=== PATIENT | female | born 1950 | race Caucasian/White ===

== ENCOUNTER 2019-11-14 12:09 | Day surgery (SDC) | payer MEDICARE ==
[~2019-11-14] VITALS: Ht 167.6 cm; Wt 75.8 kg
[~2019-11-14 12:09] MED LIST: CONEST.625 PO; HYDCHL25 PO; OMEP20ER PO
--- NOTE | 2019-11-14 15:42 | NUR ---
11/14/19 1542 Tiera Root PATIENT REFUSED MULTIPLE OFFERS OF PO FLUIDS
== END 2019-11-14 15:47 | disposition home or self-care (01) ==
LOC: ORSCSDS 12:09
PROVIDERS: Student in an Organized Health Care Education/Training Program
PROC: 0DB68ZX Excision of Stomach, Via Natural or Artificial Opening Endoscopic, Diagnostic (ICD-10-PCS; principal; 2019-11-14 13:45)
PROC: 0DB48ZX Excision of Esophagogastric Junction, Via Natural or Artificial Opening Endoscopic, Diagnostic (ICD-10-PCS; principal; 2019-11-14 13:45)
PROC: 0DB98ZX Excision of Duodenum, Via Natural or Artificial Opening Endoscopic, Diagnostic (ICD-10-PCS; principal; 2019-11-14 13:45)
PROC: 0DJD8ZZ Inspection of Lower Intestinal Tract, Via Natural or Artificial Opening Endoscopic (ICD-10-PCS; principal; 2019-11-14 13:45)
DX: R10.13 Epigastric pain (principal); K22.70 Barrett's esophagus without dysplasia; Z12.11 Encounter for screening for malignant neoplasm of colon; K56.699 Other intestinal obstruction unspecified as to partial versus complete obstruction; K31.7 Polyp of stomach and duodenum; K21.9 Gastro-esophageal reflux disease without esophagitis; K22.2 Esophageal obstruction; K44.9 Diaphragmatic hernia without obstruction or gangrene; K62.89 Other specified diseases of anus and rectum; I10 Essential (primary) hypertension; Z79.899 Other long term (current) drug therapy
CPT/HCPCS: 88305; 88342; J2704; J7120

== ENCOUNTER → 2021-09-11 | Outpatient (CLI) | payer OTHER | END | disposition home or self-care (01) | LOC: LAB 17:36 → LAB SHORT 17:36 | DX: N39.0 Urinary tract infection, site not specified (principal) | CPT/HCPCS: 87077; 87086; 87186 ==

== ENCOUNTER 2023-04-14 12:03 | Day surgery (SDC) | payer OTHER ==
[~2023-04-14] VITALS: Ht 167.6 cm; Wt 78.9 kg
[2023-04-14] MEDS ORDERED: LOSARTAN POTASS25 M2 PO (12:40)
[2023-04-14] MEDS ORDERED: METO100ER PO (12:40)
--- NOTE | 2023-04-14 13:25 | NUR ---
[facility]14/[address] [facility] [facility] INFORMED OF ELEVATED BLOOD PRESSURE IN PRE-OP AND THAT PATIENT IS UNABLE TO GET HER LOSARTAN FROM THE PHARMACY AND HAS NOT TAKEN METOPROLOL TODAY, SHE STATED SHE TOOK THE LAST METOPROLOL PILL SHE HAD YESTERDAY MORNING. PER DR LAI, REFER TO DR ZENG. PER DR ZENG, OK TO PROCEED.
--- NOTE | 2023-04-14 14:20 | NUR ---
04/14/23 1420 Ida Hall USED AT [facility] BY DR LAI.
--- NOTE | 2023-04-14 14:27 | NUR ---
04/14/23 1427 CARLOS ESPINOZA TRIAL OFF O2- 10L. O2 SAT STAYING UPPER 90'S
[2023-04-14 14:48] VITALS: BP 174/81
== END 2023-04-14 15:04 | disposition home or self-care (01) ==
LOC: ORSCSDS 12:03
DX: H61.23 Impacted cerumen, bilateral (principal); H72.01 Central perforation of tympanic membrane, right ear; H69.93 Unspecified Eustachian tube disorder, bilateral; K21.9 Gastro-esophageal reflux disease without esophagitis; I10 Essential (primary) hypertension; Z79.899 Other long term (current) drug therapy
CPT/HCPCS: A9270; J2250; J2704; J3010; J7120

== ENCOUNTER 2023-06-30 08:54 | Observation (INO) | payer OTHER ==
[~2023-06-30] VITALS: Ht 167.6 cm; Wt 79.2 kg
[~2023-06-30 08:54] MED LIST changes: +LOSARTAN POTASS25 M2 PO; +METO100ER PO
[2023-06-30 09:35] LABS: BASOPHILS ABSOLUTE AUTO 0.08 K/mm3 (0.00-0.23); BASOPHILS PERCENT AUTO 2 % (0-2); EOSINOPHILS PERCENT AUTO 2 % (0-6); Hemoglobin 14.2 g/dL (11.5-16.0); IMMATURE GRAN ABSOLUTE AUTO 0.01 K/mm3 (0.00-0.10); IMMATURE GRAN PERCENT AUTO 0 % (0-1); LYMPHOCYTES ABSOLUTE AUTO 1.82 K/mm3 (0.84-5.20); LYMPHOCYTES PERCENT AUTO 37 % (21-46); MONOCYTES ABSOLUTE AUTO 0.31 K/mm3 (0.16-1.47); MONOCYTES PERCENT AUTO 6 % (4-13); Mean Corpuscular HGB 30.9 pg (26.0-34.0); Mean Corpuscular HGB Conc 34.6 g/dL (31.5-36.5); Mean Corpuscular Volume 89 fL (80-100); Mean Platelet Volume 10.5 fL (9.1-12.4); NEUTROPHILS ABSOLUTE AUTO 2.66 K/mm3 (1.96-9.15); NEUTROPHILS PERCENT AUTO 54 % (41-73); Platelet Count 253 K/mm3 (150-400); RDW Coefficient Variation 11.9 % (11.7-14.2); RDW Standard Deviation 38.6 fL (35.1-46.3); White Blood Cell Count 4.98 K/mm3 (4.00-11.30)
[2023-06-30 09:47] LABS: Albumin, Blood 3.6 g/dL (3.4-5.0); Albumin/Globulin Ratio 1.1 (0.8-1.8); Bilirubin, Total 0.4 mg/dL (0.1-1.0); Bun/Creatinine Ratio 21.7 (12.0-20.0); Calcium, Blood 9.3 mg/dL (8.5-10.1); Creatinine, Blood 0.78 mg/dL (0.40-1.00); Globulin, Blood 3.4 g/dL (2.2-4.0); Potassium, Blood 3.7 mmol/L (3.5-5.5)
[2023-06-30] MEDS ORDERED: Losartan Potassium 50 MG Tab PO ONE (11:00)
[2023-06-30] MEDS ORDERED: Aspirin 81 MG Chew PO ONE (11:55)
[2023-06-30] MEDS ORDERED: Clopidogrel Bisulfate 75 MG Tab PO ONE (13:20)
[2023-06-30] MEDS ORDERED: FLU VACC QS2023-24(6MOS UP)/PF 60 MCG/0.5 ML SYRINGE IM PRN (13:35)
[2023-06-30 13:51] LABS: CHOL/HDL RATIO 5.5; Cholesterol 260 mg/dL (50-200); HDL Cholesterol 47 mg/dL (>39); LDL/HDL RATIO 3.9; Low Density Lipoprotein Chol 185 mg/dL (0-110); Triglycerides 140 mg/dL (30-160); Very Low Density Lipoprot Chol 28 mg/dL (6-32)
[2023-06-30] MEDS ORDERED: Atorvastatin 40 MG Tab PO SCH (14:00)
[2023-06-30 16:15] VITALS: BP 190/64
--- NOTE | 2023-06-30 18:25 | NUR ---
SHIFT SUMMARY 1611 RECEIVED PT TO RM 304 [employer]IA [employer], FROM ER. PT ABLE TO TX SELF TO BED. ADMITTED FOR ACUTE CVA WITH R SIDE WEAKNESS; MOSTLY RESOLVED BY TIME OF ADMISSION. PT REPORTS SOME RESIDUAL R HAND WEAKNESS. UP WITH SBA FOR SAFETY. PT UP TO BTHRM NEEDED. ABLE TO EAT AND DRINK SAFELY. DR MATHEW NOTIFIED FOR DIET ORDERS. PT ALSO REQUESTING TO BE DNR STATUS. PT TO BRING IN HOME POLST IN AM. PT REQUESTING PRILOSEC; DR MATHEW NOTIFIED AND TO PUT IN ORDERS. NO C/O PAIN. VERY PLEASANT AND CO-OP. ABLE TO MAKE NEEDS KNOWN.
[2023-06-30 19:47] VITALS: BP 149/57
[2023-06-30] MEDS ORDERED: Melatonin 5 MG Tablet PO PRN (22:05)
[2023-07-01 03:49] VITALS: BP 144/78
--- NOTE | 2023-07-01 05:07 | NUR ---
SHIFT SUMMARY ADMITTED FOR CVA. DNR CODE. SYMPTOMS RESOLVING, RUE WEAKNESS REMAINS. PT/OT/ST ORDERED. CARDIAC DIET. ON RA. STANDBY ASSIST W/BRP. PLAN IS FOR MRI, ECHO, PERMISSIVE HTN, STATIN/PLAVIX RX. MELATONIN GIVEN FOR INSOMNIA. ON LOVENOX. TELEMETRY: NSR @ 61 BPM.
[2023-07-01] MEDS ORDERED: Omeprazole 20 MG CapCR PO SCH (06:00)
[2023-07-01 07:25] VITALS: BP 169/93
[2023-07-01] MEDS ORDERED: Aspirin 81 MG Chew PO SCH (09:00)
[2023-07-01] MEDS ORDERED: Clopidogrel Bisulfate 75 MG Tab PO SCH (09:00)
[2023-07-01] MEDS ORDERED: Enoxaparin 40 MG/0.4 ML SYR SC SCH (09:00)
[2023-07-01 16:23] VITALS: BP 170/80
[2023-07-01] MEDS ORDERED: ATOR80 PO (17:16)
[2023-07-01] MEDS ORDERED: CLOP75 PO (17:16)
[2023-07-01] MEDS ORDERED: PANT40 PO (17:16)
[2023-07-01] MEDS ORDERED: ASPI81CH PO (17:16)
--- NOTE | 2023-07-01 18:22 | NUR ---
SHIFT SUMMARY PT AWAKE DURING SHIFT REPORT, UP TO BTHRM INDEPENDENTLY. PT REQUESTING TO TAKE A SHOWER AFTER BREAKFAST. PT UP TO EOB FOR MEALS. ABLE TO WORK WITH THERAPY AND AMBULATE IN HALLS. PT STILL HAVING SOME R HAND AND R LEG RESIDULE WEAKNESS, BUT ABLE TO USE EXTREMITIES. VISITORS TO THRU OUT THE DAY, HOPING PT TO BE D/C'D. PT WAITED FOR ECHO TO BE DONE AND THEN ABLE TO TAKE A SHOWER. WHEN ECHO RESULTS IN, DR MATHEW PLACED D/C TO HOME ORDERS. MEDS FAXED PER PT REQUEST. DAUGHTER HERE TO TAKE PT HOME. IV AND TELE MX D/C'D. D/C INSTRUCTIONS REVIEWED WITH PT; VERBALIZED UNDERSTANDING. PHARMACY REVIEWED NEW MEDICATIONS WITH PT. ALL BELONGINGS TOGETHER WITH PT BEING ASSISTED BY FAMILY.
[2023-07-02] MEDS ORDERED: Pantoprazole Sodium 40 MG Tab PO SCH (06:00)
== END 2023-07-01 18:37 | disposition home health service (06) ==
LOC: ER 08:54 → MEDS 08:55
PROVIDERS: Emergency Medicine; ADMIT Internal Medicine
DX: I63.9 Cerebral infarction, unspecified (principal); E78.00 Pure hypercholesterolemia, unspecified; K21.9 Gastro-esophageal reflux disease without esophagitis; I10 Essential (primary) hypertension; I25.10 Atherosclerotic heart disease of native coronary artery without angina pectoris; E78.5 Hyperlipidemia, unspecified; I73.9 Peripheral vascular disease, unspecified; Z79.899 Other long term (current) drug therapy; Z88.8 Allergy status to other drugs, medicaments and biological substances
CPT/HCPCS: 70450; 70496; 70498; 70551; 71045; 80053; 80061; 82947; 83036; 85025; 92610; 93005; 93010; 93306; 96372; 97116; 97162; 97165; 97530; 97535; 99285-25; A9270; G0378; J1650; Q9967

== ENCOUNTER 2023-07-05 09:58 | Inpatient (IN) | payer OTHER, MEDICAID ==
[~2023-07-05] VITALS: Ht 167.6 cm; Wt 77.2 kg
[~2023-07-05 09:58] MED LIST changes: +ASPI81CH PO; +ATOR80 PO; +CLOP75 PO; +PANT40 PO
[2023-07-05 10:12] LABS: BASOPHILS ABSOLUTE AUTO 0.07 K/mm3 (0.00-0.23); BASOPHILS PERCENT AUTO 1 % (0-2); EOSINOPHILS ABSOLUTE AUTO 0.04 K/mm3 (0.00-0.68); EOSINOPHILS PERCENT AUTO 1 % (0-6); Hematocrit 40.6 % (33.0-51.0); Hemoglobin 13.8 g/dL (11.5-16.0); IMMATURE GRAN ABSOLUTE AUTO 0.01 K/mm3 (0.00-0.10); IMMATURE GRAN PERCENT AUTO 0 % (0-1); LYMPHOCYTES ABSOLUTE AUTO 1.36 K/mm3 (0.84-5.20); LYMPHOCYTES PERCENT AUTO 23 % (21-46); MONOCYTES PERCENT AUTO 7 % (4-13); Mean Corpuscular HGB 30.4 pg (26.0-34.0); Mean Corpuscular Volume 89 fL (80-100); Mean Platelet Volume 10.1 fL (9.1-12.4); NEUTROPHILS ABSOLUTE AUTO 3.95 K/mm3 (1.96-9.15); NEUTROPHILS PERCENT AUTO 68 % (41-73); Platelet Count 253 K/mm3 (150-400); RDW Coefficient Variation 11.9 % (11.7-14.2); RDW Standard Deviation 38.7 fL (35.1-46.3); Red Blood Cell Count 4.54 M/mm3 (3.80-5.20); White Blood Cell Count 5.83 K/mm3 (4.00-11.30)
[2023-07-05 10:30] LABS: Albumin, Blood 3.7 g/dL (3.4-5.0); Albumin/Globulin Ratio 1.1 (0.8-1.8); Bilirubin, Total 0.7 mg/dL (0.1-1.0); Bun/Creatinine Ratio 37.1 (12.0-20.0); Calcium, Blood 9.5 mg/dL (8.5-10.1); Creatinine, Blood 0.73 mg/dL (0.40-1.00); Globulin, Blood 3.3 g/dL (2.2-4.0); Potassium, Blood 3.8 mmol/L (3.5-5.5)
[2023-07-05] MEDS ORDERED: FLU VACC QS2023-24(6MOS UP)/PF 60 MCG/0.5 ML SYRINGE IM PRN (13:50)
[2023-07-05 15:25] VITALS: BP 188/67
[2023-07-05 17:05] VITALS: BP 174/66
[2023-07-05] MEDS ORDERED: HydrALAZINE HCl 20 MG / ML 1ML Vial IV PRN (17:05)
[2023-07-05 17:49] VITALS: BP 167/76
[2023-07-05] MEDS ORDERED: Labetalol HCL 5 MG/ML 4ML Injection (Single Dose) IV ONE (18:10)
[2023-07-05] MEDS ORDERED: Cyclobenzaprine HCl 10 MG Tab PO PRN (18:15)
[2023-07-05] MEDS ORDERED: Losartan Potassium 25 MG Tab PO ONE (19:00)
[2023-07-05 19:04] LABS: Magnesium, Blood 2.1 mg/dL (1.6-2.4); Phosphorus, Blood 2.9 mg/dL (2.5-4.9)
--- NOTE | 2023-07-05 20:03 | NUR ---
PATIENT ARRIVED TO UNIT AT 1515, BLOOD PRESSURE ELAVATED, RECHECK STILL ABOVE 170S, DR MATHEW NOTIFIED AND HYDRALAZINE ORDERED. BP STILL ABOVE 160 AN HOUR LATER AND LABETELOL 5MG ORDERED AND GIVENG. PATIENT ALSOW WITH SPASMS OF RIGHT LEG, FLEXERIL ORDERED AND MAGNESIUM AND PHOSPHORUS LEVEL ORDERED. PATIENT REPORTS NO RELEIF WITH FLEXERIL UPON RN TO RN BEDSIDE REPORT. RN KONSTANTIN NOTIFIED DR MATHEW WANTS TO BE MADE AWARE OF NO RELIEF OF SPASMS. BED IN LOW POSITION, CALL LIGHT IN REACH. BED ALARM ON FOR NOW FOR SAFETY.
[2023-07-05 20:18] VITALS: BP 161/72
[2023-07-06 03:00] VITALS: BP 161/84
[2023-07-06 05:43] LABS: BASOPHILS ABSOLUTE AUTO 0.06 K/mm3 (0.00-0.23); BASOPHILS PERCENT AUTO 1 % (0-2); EOSINOPHILS ABSOLUTE AUTO 0.07 K/mm3 (0.00-0.68); EOSINOPHILS PERCENT AUTO 1 % (0-6); Hemoglobin 13.6 g/dL (11.5-16.0); IMMATURE GRAN ABSOLUTE AUTO 0.02 K/mm3 (0.00-0.10); IMMATURE GRAN PERCENT AUTO 0 % (0-1); LYMPHOCYTES ABSOLUTE AUTO 1.88 K/mm3 (0.84-5.20); LYMPHOCYTES PERCENT AUTO 29 % (21-46); MONOCYTES ABSOLUTE AUTO 0.46 K/mm3 (0.16-1.47); MONOCYTES PERCENT AUTO 7 % (4-13); Mean Corpuscular HGB 30.3 pg (26.0-34.0); Mean Corpuscular Volume 89 fL (80-100); Mean Platelet Volume 10.4 fL (9.1-12.4); NEUTROPHILS ABSOLUTE AUTO 4.08 K/mm3 (1.96-9.15); NEUTROPHILS PERCENT AUTO 62 % (41-73); Platelet Count 268 K/mm3 (150-400); Red Blood Cell Count 4.49 M/mm3 (3.80-5.20); White Blood Cell Count 6.57 K/mm3 (4.00-11.30)
[2023-07-06] MEDS ORDERED: Pantoprazole Sodium 40 MG Tab PO SCH (06:00)
[2023-07-06 06:04] LABS: Bun/Creatinine Ratio 32.6 (12.0-20.0); Calcium, Blood 9.3 mg/dL (8.5-10.1); Creatinine, Blood 0.67 mg/dL (0.40-1.00); Potassium, Blood 3.4 mmol/L (3.5-5.5)
--- NOTE | 2023-07-06 07:52 | NUR ---
ELECTRICAL LOGGER SUMMARY BP ELEVATED, OTHERWISE VSS. RIGHT SIDE WEAKNESS FROM RECENT CVA. DAUGHTER AT BEDSIDE FOR SUPPORT. PT SONIAAL SCHEDULED FOR THIS AM. INCONT A FEW TIMES, REPOSITIONED AND CLEANED UP. MED TELE SR IN THE 60'S. OCCASIONAL RIGHT LEG SPASMS, MEDS EFFECTIVE. OTHERWISE, HAS BEEN RESTING QUIETLY WITH FEW INTERRUPTIONS. CALL LIGHT IN REACH - ABLE TO USE IT WELL. RAILS UP X 2 FOR SAFETY. SMILING AT SHIFT CHANGE.
[2023-07-06 08:18] VITALS: BP 150/83
[2023-07-06] MEDS ORDERED: Aspirin 81 MG Chew PO SCH (09:00)
[2023-07-06] MEDS ORDERED: Losartan Potassium 25 MG Tab PO SCH (09:00)
[2023-07-06] MEDS ORDERED: AmLODIPine Besylate 5 MG Tab PO SCH (09:00)
[2023-07-06] MEDS ORDERED: Atorvastatin 40 MG Tab PO SCH (09:00)
[2023-07-06] MEDS ORDERED: Clopidogrel Bisulfate 75 MG Tab PO SCH (09:00)
[2023-07-06] MEDS ORDERED: Metoprolol Succinate 50 MG TABCR PO SCH (09:00)
[2023-07-06] MEDS ORDERED: Enoxaparin 40 MG/0.4 ML SYR SC SCH (09:00)
[2023-07-06] MEDS ORDERED: Losartan Potassium 50 MG Tab PO SCH (09:00)
[2023-07-06 16:19] VITALS: BP 139/65
--- NOTE | 2023-07-06 17:11 | NUR ---
Met with pt's daughter Mojgan for therapeutic visit. She describes her mom, the patient as a "go-getter". 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 Daughter lives in [place], and is here to provide emotional support. She is concerned about how well the patient's recovery will go, and if she will be able to return to independence. The patient is alert and oriented. She reports feeling exhausted, states she isn't getting any sleep at night between insomnia, muscles spasms, and what she calls "weird nerve pain on my R side". The patient does have a muscle relaxer prescribed TID prn, and after discussion with Dr. Mcgarry, the patient will try gabapentin at bedtime for pain and sleep. The patient is preparing to go to SNF when approved, and daughter Mojgan verbalized appreciation toward Palliative Care being available as a "sounding board", and "an empathetic ear during a stressful time". Palliative care will remain involved, plan to assist pt and daughter with filling out a POLST tomorrow, as she doesn't currently have one.
--- NOTE | 2023-07-06 18:50 | NUR ---
1850- TELEPHONE VERBAL FROM SILVIA GONZALEZ FOR TOMAZEPAM 15MG AT BEDTIME NIGHTLY.
--- NOTE | 2023-07-06 20:08 | NUR ---
SUMMARY- AAOX4. X1 MIN ASSIST TO BSC/CHAIR WITH GAIT BELT. NO ISSUES WITH EATING TODAY. R SIDED WEAKNESS NOTED.
[2023-07-06 20:11] VITALS: BP 176/85
[2023-07-06] MEDS ORDERED: Temazepam 15 MG Cap PO SCH (21:00)
[2023-07-06] MEDS ORDERED: Methocarbamol 500 MG Tab PO PRN (21:40)
[2023-07-06] MEDS ORDERED: Gabapentin 300 MG Cap PO SCH (22:00)
[2023-07-06] MEDS ORDERED: Losartan Potassium 50 MG Tab PO ONE (22:00)
[2023-07-07 02:47] VITALS: BP 146/71
[2023-07-07 04:54] LABS: BASOPHILS ABSOLUTE AUTO 0.08 K/mm3 (0.00-0.23); BASOPHILS PERCENT AUTO 1 % (0-2); EOSINOPHILS PERCENT AUTO 2 % (0-6); Hematocrit 40.2 % (33.0-51.0); Hemoglobin 13.5 g/dL (11.5-16.0); IMMATURE GRAN ABSOLUTE AUTO 0.01 K/mm3 (0.00-0.10); IMMATURE GRAN PERCENT AUTO 0 % (0-1); LYMPHOCYTES ABSOLUTE AUTO 1.94 K/mm3 (0.84-5.20); LYMPHOCYTES PERCENT AUTO 30 % (21-46); MONOCYTES ABSOLUTE AUTO 0.52 K/mm3 (0.16-1.47); MONOCYTES PERCENT AUTO 8 % (4-13); Mean Corpuscular HGB 30.1 pg (26.0-34.0); Mean Corpuscular HGB Conc 33.6 g/dL (31.5-36.5); Mean Corpuscular Volume 90 fL (80-100); Mean Platelet Volume 10.4 fL (9.1-12.4); NEUTROPHILS ABSOLUTE AUTO 3.85 K/mm3 (1.96-9.15); NEUTROPHILS PERCENT AUTO 59 % (41-73); Platelet Count 279 K/mm3 (150-400); RDW Coefficient Variation 12.1 % (11.7-14.2); RDW Standard Deviation 39.8 fL (35.1-46.3); Red Blood Cell Count 4.48 M/mm3 (3.80-5.20)
[2023-07-07 05:24] LABS: Bun/Creatinine Ratio 45.6 (12.0-20.0); Calcium, Blood 9.3 mg/dL (8.5-10.1); Creatinine, Blood 0.7 mg/dL (0.40-1.00); Potassium, Blood 3.5 mmol/L (3.5-5.5)
[2023-07-07 07:18] VITALS: BP 150/78
[2023-07-07] MEDS ORDERED: Losartan Potassium 50 MG Tab PO SCH (09:00)
[2023-07-07] MEDS ORDERED: Carvedilol 6.25 MG Tab PO SCH ×2 (09:00→17:00)
[2023-07-07 15:14] VITALS: BP 146/72
[2023-07-07 19:57] VITALS: BP 157/84
--- NOTE | 2023-07-07 20:18 | NUR ---
SUMMARY- NO ACUTE EVENTS THIS SHIFT. NO CHANGES WITH PT. AAOX4. MIN ASSIST TO BSC.
[2023-07-08 02:31] VITALS: BP 134/77
--- NOTE | 2023-07-08 05:09 | NUR ---
SHIFT SUMMARY 73 YR F ADMITTED ON 07-06-23. DNR. NO ACUTE CHANGES THIS SHIFT. PT HAS SLEPT FOR MOST OF THIS SHIFT. RIGHT ARM IS FLACCID AND IS PROPPED ON A PILLOW. PUREWIK IS IN PLACE AND WORKING WELL. PLAN IS FOR [facility] AND CURRENTLY AWAITING AUTHORIZATION. PT IS VERY PLEASANT AND COOPERATIVE WITH CARE.
[2023-07-08 07:30] LABS: BASOPHILS ABSOLUTE AUTO 0.07 K/mm3 (0.00-0.23); BASOPHILS PERCENT AUTO 1 % (0-2); EOSINOPHILS ABSOLUTE AUTO 0.12 K/mm3 (0.00-0.68); EOSINOPHILS PERCENT AUTO 2 % (0-6); Hematocrit 40.1 % (33.0-51.0); Hemoglobin 13.7 g/dL (11.5-16.0); IMMATURE GRAN PERCENT AUTO 0 % (0-1); LYMPHOCYTES ABSOLUTE AUTO 1.52 K/mm3 (0.84-5.20); LYMPHOCYTES PERCENT AUTO 28 % (21-46); MONOCYTES ABSOLUTE AUTO 0.38 K/mm3 (0.16-1.47); MONOCYTES PERCENT AUTO 7 % (4-13); Mean Corpuscular HGB 30.2 pg (26.0-34.0); Mean Corpuscular HGB Conc 34.2 g/dL (31.5-36.5); Mean Corpuscular Volume 89 fL (80-100); Mean Platelet Volume 10.1 fL (9.1-12.4); NEUTROPHILS ABSOLUTE AUTO 3.35 K/mm3 (1.96-9.15); NEUTROPHILS PERCENT AUTO 62 % (41-73); Platelet Count 260 K/mm3 (150-400); RDW Coefficient Variation 11.9 % (11.7-14.2); RDW Standard Deviation 38.5 fL (35.1-46.3); Red Blood Cell Count 4.53 M/mm3 (3.80-5.20); White Blood Cell Count 5.44 K/mm3 (4.00-11.30)
[2023-07-08 07:50] LABS: Bun/Creatinine Ratio 58.2 (12.0-20.0); Calcium, Blood 9.3 mg/dL (8.5-10.1); Creatinine, Blood 0.6 mg/dL (0.40-1.00); Potassium, Blood 3.5 mmol/L (3.5-5.5)
[2023-07-08 07:54] VITALS: BP 154/67
[2023-07-08 13:05] VITALS: BP 118/73
--- NOTE | 2023-07-08 13:25 | NUR ---
"Spiritual Care | Code Blue Response Pt. is being treated by the Code team. Pts. daughter Mojgan and a friend of the Pt. are in the Med. floor esparza waiting area. Gave crisis support to the family by providing emotional and logistic support. Daughter and friend display evidence of being comforted. Escorted the daughter and friend into Pts. room when the nursing staff deemed it safe to do so. Introduced myself to Pt. Will remain available to Pt. and daughter."
[2023-07-08 13:27] LABS: BASOPHILS ABSOLUTE AUTO 0.11 K/mm3 (0.00-0.23); BASOPHILS PERCENT AUTO 1 % (0-2); EOSINOPHILS ABSOLUTE AUTO 0.12 K/mm3 (0.00-0.68); EOSINOPHILS PERCENT AUTO 1 % (0-6); Hematocrit 43.6 % (33.0-51.0); Hemoglobin 14.8 g/dL (11.5-16.0); IMMATURE GRAN ABSOLUTE AUTO 0.02 K/mm3 (0.00-0.10); IMMATURE GRAN PERCENT AUTO 0 % (0-1); LYMPHOCYTES ABSOLUTE AUTO 1.59 K/mm3 (0.84-5.20); LYMPHOCYTES PERCENT AUTO 17 % (21-46); MONOCYTES ABSOLUTE AUTO 0.45 K/mm3 (0.16-1.47); MONOCYTES PERCENT AUTO 5 % (4-13); Mean Corpuscular HGB 30.2 pg (26.0-34.0); Mean Corpuscular HGB Conc 33.9 g/dL (31.5-36.5); Mean Corpuscular Volume 89 fL (80-100); Mean Platelet Volume 10.2 fL (9.1-12.4); NEUTROPHILS ABSOLUTE AUTO 6.83 K/mm3 (1.96-9.15); NEUTROPHILS PERCENT AUTO 75 % (41-73); Platelet Count 343 K/mm3 (150-400); RDW Standard Deviation 39.1 fL (35.1-46.3); White Blood Cell Count 9.12 K/mm3 (4.00-11.30)
[2023-07-08 13:54] LABS: Base Excess Venous -1.9 mmol/L; PCO2 Venous 38.5 mmHg (38-42); pH Blood Venous 7.39 (7.34-7.37)
[2023-07-08 14:06] LABS: Albumin, Blood 3.7 g/dL (3.4-5.0); Bilirubin, Total 0.8 mg/dL (0.1-1.0); Bun/Creatinine Ratio 48.1 (12.0-20.0); Creatinine, Blood 0.83 mg/dL (0.40-1.00); Globulin, Blood 3.8 g/dL (2.2-4.0); Potassium, Blood 4.1 mmol/L (3.5-5.5); Total Protein, Blood 7.5 g/dL (6.4-8.2)
--- NOTE | 2023-07-08 14:22 | NUR ---
Telephone report from SHERI Peck. Pt to be coming to PCU 11 shortly.
[2023-07-08 14:40] VITALS: BP 137/78
--- NOTE | 2023-07-08 14:51 | NUR ---
1430 PT ARRIVED TO PCU 11. She is alert, speech is slurred, but she is oriented and appropriate in conversation. Her daughter Mojgan is at the bedside. Pt has right sided facial droop and right side is flaccid, both upper and lower extremity. She is having spontaneous right arm flexion with yawning.
--- NOTE | 2023-07-08 16:33 | NUR ---
EEG IN PROGRESS.
--- NOTE | 2023-07-08 16:34 | NUR ---
Max assist with gait belt to stand and pivot from the chair to the bedside commode to void. Quite a challenge with all of the EEG leads in place. She moves with difficulty, right side deficit.
[2023-07-08] MEDS ORDERED: Carvedilol 6.25 MG Tab PO SCH (17:00)
[2023-07-08] MEDS ORDERED: Carvedilol 25 MG Tab PO SCH (17:00)
--- NOTE | 2023-07-08 17:12 | NUR ---
1300 PT WAS SITTING IN THE CHAIR AFTER IMCU NURSE ASSISTED HER FROM BSC TO CHAIR, PT'S FAMILY CALLED OUT INTO [place], "WE NEED HELP IN HERE!!!" UPON ARRIVAL TO THE ROOM, PT WAS HUNCHED OVER IN HER CHAIR, LEANING TO THE RIGHT, HEAD DOWN, CYANOTIC, SHALLOW SLOW RESP. 2 RN BLANKET LIFT BACK TO THE BED, PT FLAT ON BACK, ASSESSED PULSE TO FIND THREADY BUT PALP, TURBINE ASSEMBLER CALLED RATE 66, HAD GONE LOW 30'S RECENTLY. CALLED CODE 1301,DR LISA COLE RESPONDED ALONG WITH CODE TEAM. HE DID CALL DR MATHEW AFTER THE INCIDENT AND ALERTED HIM TO PT'S CONDITION. RT TO AID IN AIRWAY, STARTED ON OXYGEN NC, PT WAS NOT RESPONSIVE AT FIRST, BUT WITHIN 2 MINUTES WAS COMING TO AND ABLE TO ANSWER QUESTIONS AND BREATH SUFFICIENTLY. PT DID NOT REMEBER THAT ANYTHING HAPPENED, STATES SHE BARELY REMEMBERWS MAYBE GETTING A LITTLE DIZZY BEFORE EPISODE OCCURED. BP OBTAINED 1305, 118/73, MAP 85, RATE SR 66. PT WAS BACK TO BASELINE NEUROO BY 1305. IMCU NURSE AND SHERI ELLIS LOKI PT OVER NEXT HOUR, CONT PULSE OX AND CONT OBS. PT IS FOUND TO BE COMING IN/OUT OF FOCUS. DRIFTS INTO A LETHARGIC STATE, SLOWS BREATHING AND SATS DROPPED INTO 70'S, COMES TO WITH NOXIOUS STIM. CALLED DR MATHEW ALERTING HIM THAT PT CONT TO HAVE CONCERNING NEURO EPISODES. ORDER FOR PCU TX, ORDER FOR MRI AND EEG. CALLED THELMA PELLETIER AND GAVE REPORT 1415. TX TO PCU 11 AT 1430
[2023-07-08 17:35] VITALS: BP 144/77
[2023-07-08 23:05] VITALS: BP 116/59
[2023-07-09] VITALS (7 sets, daily range): BP systolic 89–143; BP diastolic 47–91
[2023-07-09 04:19] LABS: BASOPHILS ABSOLUTE AUTO 0.07 K/mm3 (0.00-0.23); BASOPHILS PERCENT AUTO 1 % (0-2); EOSINOPHILS ABSOLUTE AUTO 0.09 K/mm3 (0.00-0.68); EOSINOPHILS PERCENT AUTO 1 % (0-6); Hematocrit 38.2 % (33.0-51.0); Hemoglobin 13.1 g/dL (11.5-16.0); IMMATURE GRAN ABSOLUTE AUTO 0.03 K/mm3 (0.00-0.10); IMMATURE GRAN PERCENT AUTO 1 % (0-1); LYMPHOCYTES ABSOLUTE AUTO 1.78 K/mm3 (0.84-5.20); LYMPHOCYTES PERCENT AUTO 27 % (21-46); MONOCYTES PERCENT AUTO 8 % (4-13); Mean Corpuscular HGB 30.8 pg (26.0-34.0); Mean Corpuscular HGB Conc 34.3 g/dL (31.5-36.5); Mean Corpuscular Volume 90 fL (80-100); Mean Platelet Volume 10.5 fL (9.1-12.4); NEUTROPHILS ABSOLUTE AUTO 4.02 K/mm3 (1.96-9.15); NEUTROPHILS PERCENT AUTO 62 % (41-73); Platelet Count 272 K/mm3 (150-400); RDW Coefficient Variation 12.1 % (11.7-14.2); RDW Standard Deviation 39.1 fL (35.1-46.3); Red Blood Cell Count 4.26 M/mm3 (3.80-5.20); White Blood Cell Count 6.49 K/mm3 (4.00-11.30)
[2023-07-09 04:46] LABS: Bun/Creatinine Ratio 53.4 (12.0-20.0); Calcium, Blood 9.3 mg/dL (8.5-10.1); Creatinine, Blood 0.73 mg/dL (0.40-1.00); Potassium, Blood 3.7 mmol/L (3.5-5.5)
--- NOTE | 2023-07-09 05:57 | NUR ---
SHIFT SUMMARY PT IS ALERT AND ORIENTED X 4, COOPERATIVE WITH CARE AND ABLE TO MAKE NEEDS KNOWN. DROOPING R SIDE OF FACE, R ARM FLACCID, R LEG DEFICIT BUT IS STILL ABLE TO MOVE AND LIFT R LEG SLIGHTLY. PT HAS SENSATION TO ALL EXTREMITIES. PT ON RA AND MAINTAINING O2 SATURATION ABOVE 92%, SHE HAS DENIED SOB ALL SHIFT. HR 60'S, LAST BP OF 122/70, PT HAS DENIED CHEST PAIN/PRESSURE ALL SHIFT. RR 12 AND ABOVE ALL NIGHT, UNLABORED BREATHING WHILE SLEEPING WITH SYMMETRICAL RISE AND FALL OF CHEST. PT HAS OCCASIONAL SPASMS OF R LEG WHERE IT LIFTS UP AND GOES BACK DOWN, PT SAID IT GETS WORSE AT NIGHT. AT BEGINNING OF SHIFT PT'S DAUGHTER SAID THAT BENDING THAT LEG HELPED TO MINIMIZE THE SPASMS. THIS RN ELEVATED PT'S LEG TO WHERE IT WAS BENT AT THE KNEE WITH PILLOWS, AROUND 0530 PT SAID THAT HAVING PILLOWS UNDER HER LEG HELPED HER SLEEP BETTER, USUALLY SHE IS KEPT AWAKE BY THE LEG SPASMS. PT SLEPT THE MAJORITY OF THE SHIFT. Q 2 TURNS PERFORMED THIS SHIFT. PT HAS PUREWICK IN PLACE DRAINING SMALL AMOUNTS OF YELLOW URINE. OUTPUT WAS MINIMAL THIS SHIFT, SEE I'S AND O'S, BLADDER SCAN PERFORMED, SEE CHART. NO BOWEL MOVEMENT THIS SHIFT. PT CURRENTLY RESTING IN BED WITH CALL LIGHT WITHIN REACH.
[2023-07-09] MEDS ORDERED: levETIRAcetam 750 MG in NS 100 ML IV SCH (10:16)
--- NOTE | 2023-07-09 12:27 | NUR ---
[employer] / UPDATE UPON CARE ASSUMPTION PT A&O X4 W/ SLURRED SPEECH. PT W/ NOTED R FACIAL DROOP, R ARM FLACCID & R LEG MINIMALLY ABLE TO BE LIFTED UP OFF BED BY PT. PT VSS. MONITOR SHOWING SR, HR 70s. SPO2 > 92% ON RA. PT RESPIRATIONS NOTED TO BE IRREGULAR W/ EPISODES OF APNEA. OT WORKING W/ PT THIS AM W/ PT ABLE TO STAND & WEAKLY PIVOT FROM BED TO CHAIR W/ 1 PERSON MAX ASSIST. PT SITTING UP IN CHAIR W/ THERAPIST FOR SOME TIME WHEN REPORT OF PT SUDDENLY SLUMPING OVER & NOT RESPONDING. [employer] CALLED. FINAL INSPECTION SUPERVISOR TO FIRST W/ REPORT OF PT NOT BREATHING. MONITOR SHOWING HR 60s, THEN DECREASE TO 40s. PULSE PALPABLE. PT JOHN IN COLOR & NOT RESPONDING. PT LIFTED FROM CHAIR TO BED BY BLANKET & MULTIPLE STAFF MEMBERS. DR MATHEW & DR COLE TO . EKG DONE. PT THEN WAKING WITHIN 1-2 MINUTES. DISCUSSING EEG RESULTS & ORDERED IV KEPPRA, SEE ORDER. PHARMACIST PROMPTLY TO PT RM W/ IV KEPPRA & INITIATED INFUSION PER ORDERS. PT SPEECH MORE SLURRED UPON WAKING W/ SPEECH SLIGHTLY IMPROVING OVER TIME. ST TO , REPORTS WILL REATTEMPT TO SEE PT AT LATER TIME WHEN PT MORE ALERT. PT W/ INCREASED EPISODES OF NOT BREATHING FOR 10-15 SECONDS AT A TIME. MD MATHEW NOTIFIED W/ ORDER FOR CONTINUOUS O2 MONITORING & ETCO2 MONITORING WELL BIPAP/CPAP PROTOCOL. RT NOTIFIED OF NEW ORDERS. ETCO2 RANGING FROM 13-24.
[2023-07-09] MEDS ORDERED: Zolpidem Tartrate 5 MG Tab PO PRN (17:10)
[2023-07-09] MEDS ORDERED: Baclofen 10 MG Tab PO SCH (18:00)
--- NOTE | 2023-07-09 18:50 | NUR ---
Spiritual Care Visit. Pt. is in bed and welcomes my visit. Daughter and PCU nurse are at bedside. Facilitate a short life review and ask leading questions regarding how she is handling her hospitalization. Pt. displayed evidence of courage and clarity. Prayed with the Pt. and those in the room. Pt. 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
--- NOTE | 2023-07-09 18:56 | NUR ---
END OF SHIFT PT CONTINUES TO BE A&O X4 . ORIGINALLY SLURRED SPEECH IS NOW MORE CLEAR THIS EVENING. CONTINUED R-SIDED DEFICIT. VSS. MONITOR SHOWING SB-SR, HR 40s-70s. SPO2 > 92% ON RA W/ ETCO2 MONITOR IN PLACE. RR IRREGULAR W/ 10-15 SECONDS OF NO BREATHING BUT SPO2 REMAINING > 92%. NO FURTHER EVENTS THIS SHIFT.
[2023-07-10 00:14] VITALS: BP 103/50
[2023-07-10 03:30] VITALS: BP 158/77
[2023-07-10 04:12] LABS: BASOPHILS ABSOLUTE AUTO 0.07 K/mm3 (0.00-0.23); BASOPHILS PERCENT AUTO 1 % (0-2); EOSINOPHILS ABSOLUTE AUTO 0.13 K/mm3 (0.00-0.68); EOSINOPHILS PERCENT AUTO 2 % (0-6); Hematocrit 36.4 % (33.0-51.0); Hemoglobin 12.4 g/dL (11.5-16.0); IMMATURE GRAN ABSOLUTE AUTO 0.01 K/mm3 (0.00-0.10); IMMATURE GRAN PERCENT AUTO 0 % (0-1); LYMPHOCYTES PERCENT AUTO 30 % (21-46); MONOCYTES ABSOLUTE AUTO 0.51 K/mm3 (0.16-1.47); MONOCYTES PERCENT AUTO 8 % (4-13); Mean Corpuscular HGB 30.4 pg (26.0-34.0); Mean Corpuscular HGB Conc 34.1 g/dL (31.5-36.5); Mean Corpuscular Volume 89 fL (80-100); Mean Platelet Volume 10.5 fL (9.1-12.4); NEUTROPHILS ABSOLUTE AUTO 3.52 K/mm3 (1.96-9.15); NEUTROPHILS PERCENT AUTO 58 % (41-73); Platelet Count 272 K/mm3 (150-400); RDW Coefficient Variation 11.9 % (11.7-14.2); RDW Standard Deviation 38.9 fL (35.1-46.3); Red Blood Cell Count 4.08 M/mm3 (3.80-5.20); White Blood Cell Count 6.04 K/mm3 (4.00-11.30)
[2023-07-10 04:33] LABS: Bun/Creatinine Ratio 60.3 (12.0-20.0); Calcium, Blood 9.3 mg/dL (8.5-10.1); Creatinine, Blood 0.7 mg/dL (0.40-1.00); Potassium, Blood 3.5 mmol/L (3.5-5.5)
--- NOTE | 2023-07-10 04:40 | NUR ---
SHIFT SUMMARY THIS RN ASSUMED CARE OF PATIENT AT 1900. PT A&O X4. SLURRED SPEECH NOTED; WHICH DAUGHTER STATES IS HER NORMAL. NO CHANGES TO NEURO NOTED T/O THIS SHIFT FROM PREVIOUS ASSESSMENTS. PT NOTED TO HAVE EPISODES OF APNEA WHILE SLEEPING, NO DESATTING NOTED. PT CONTINUES TO BE CONNECTED TO ETCO2 ON MONITOR. BP STABLE. SR ON MONITOR. AFEBRILE. ON RA WITH SPO2 >90%. PT CALLING APPROPRIATELY. REPOSITIONING Q2HRS PT NEEDS/ALLOWS. PUREWICK IN PLACE DRAINING DARK URINE. BED IN LOWEST POSITION AND CALL LIGHT WITHIN REACH. THIS RN WILL REPORT TO ONCOMING DAYSHIFT RN.
[2023-07-10 07:25] VITALS: BP 145/73
[2023-07-10 12:25] VITALS: BP 145/74
[2023-07-10] MEDS ORDERED: AmLODIPine Besylate 5 MG Tab PO ONE (13:00)
--- NOTE | 2023-07-10 13:44 | NUR ---
Spiritual Care Visit. Pt. is getting some stretches with Occupational Therapy when I visit. Pt. is pleasant, and light conversation takes place. Daughter arrives at bedside as does her PCU nurse. Pt. displays evidence of getting tired, so the chaplian chooses to keep the visit short. Prayed with Pt. Afterward the Pt. displayed evidence of tearful emotional. This tutor coordinator asked a few guided questions to explore the source of her emotions. The Pt. displayed evidence of being guarded in her response. pt. and zina verbalized gratitude for the spiritual care visit.
--- NOTE | 2023-07-10 17:00 | NUR ---
TRANSFER TO MEDICAL PT MEDICAL W/ TELEMETRY STATUS. A&O X4. SLIGHTLY SLURRED SPEECH. R FACIAL DROOP W/ FLACCID RUE & ABLE TO MINIMALLY MOVE RLE. PT VSS. MONITOR SHOWING SR, HR 60s-70s. SPO2 > 92% ON RA. ETCO2 MONITOR DCd. PT INCONTINENT, WEARING ATTENDS & PUREWIC. PT ABLE TO WORK W/ PT & OT TODAY. OT REPORTING NO PT/OT TOMORROW, REQUESTING THAT STAFF DO RUE ROM W/ PT TOMORROW. REPORT GIVEN TO ACCEPTING MEDICAL FLOOR RN. PT TAKEN TO RM 309 BY BED W/ BELONGINGS & FAMILY PRESENT @ APPROX 1700.
--- NOTE | 2023-07-10 17:15 | NUR ---
1705- PT ARRIVED TO MEDICAL FLOOR IN STABLE CONDITION.
[2023-07-10] MEDS ORDERED: LevETIRAcetam 500 MG Tab PO SCH (19:00)
--- NOTE | 2023-07-10 19:57 | NUR ---
SHIFT SUMMARY- PT ALERT AND ORIENTED TO FAMILY, NO S&S OF DISTRESS NOTED. PT IS OCCASSIONALLY FORGETFUL. BEDSIDE REPORT COMPLETED WITH NIGHT RN SHORTLY AFTER PT ARRIVED ON MEDICAL FLOOR FROM PCU. PLAN IS IRU AT DISCHARGE PER REPORT. PT IN BED, CALL LIGHT IN REACH NO S&S OF DISTRESS NOTED AT THE TIME OF BEDSIDE REPORT. IV BENEDICTO. TELE READING.
[2023-07-10 20:22] VITALS: BP 134/76
[2023-07-11 03:29] VITALS: BP 155/84
[2023-07-11 04:44] LABS: BASOPHILS ABSOLUTE AUTO 0.08 K/mm3 (0.00-0.23); BASOPHILS PERCENT AUTO 1 % (0-2); EOSINOPHILS ABSOLUTE AUTO 0.15 K/mm3 (0.00-0.68); EOSINOPHILS PERCENT AUTO 2 % (0-6); Hematocrit 37.7 % (33.0-51.0); Hemoglobin 12.9 g/dL (11.5-16.0); IMMATURE GRAN ABSOLUTE AUTO 0.02 K/mm3 (0.00-0.10); IMMATURE GRAN PERCENT AUTO 0 % (0-1); LYMPHOCYTES ABSOLUTE AUTO 1.74 K/mm3 (0.84-5.20); LYMPHOCYTES PERCENT AUTO 28 % (21-46); MONOCYTES ABSOLUTE AUTO 0.49 K/mm3 (0.16-1.47); MONOCYTES PERCENT AUTO 8 % (4-13); Mean Corpuscular HGB 30.6 pg (26.0-34.0); Mean Corpuscular HGB Conc 34.2 g/dL (31.5-36.5); Mean Corpuscular Volume 90 fL (80-100); Mean Platelet Volume 10.5 fL (9.1-12.4); NEUTROPHILS ABSOLUTE AUTO 3.74 K/mm3 (1.96-9.15); NEUTROPHILS PERCENT AUTO 60 % (41-73); Platelet Count 287 K/mm3 (150-400); RDW Coefficient Variation 11.9 % (11.7-14.2); RDW Standard Deviation 37.9 fL (35.1-46.3); Red Blood Cell Count 4.21 M/mm3 (3.80-5.20); White Blood Cell Count 6.22 K/mm3 (4.00-11.30)
--- NOTE | 2023-07-11 05:05 | NUR ---
SHIFT SUMMARY 84 YR F ADMITTED TO [facility] FLOOR ON 07/10/22. FULL CODE. PT WAS INFUSING PRBC UPON ARRIVAL TO THIS UNIT AND SHE TOLERATED IT WELL. SHE HAS A HX OF MYELODYSPLASIA AND CHRONIC ANEMIA REQUIRING FREQUENT BLOOD TRANSFUSIONS. SHE HAS A MEDIPORT FOR THIS REASON. PT STATED SHE FELT MUCH BETTER AFTER RECEIVING THE BLOOD. SHE HAS CHRONIC BACK PAIN AND WAS MEDICATED PER EMAR. SHE STATED THAT SHE SLEPT WELL LAST NIGHT. NO ACUTE CHANGES THIS SHIFT.
[2023-07-11 05:43] LABS: Bun/Creatinine Ratio 46.6 (12.0-20.0); Calcium, Blood 9.2 mg/dL (8.5-10.1); Creatinine, Blood 0.71 mg/dL (0.40-1.00); Potassium, Blood 3.5 mmol/L (3.5-5.5)
--- NOTE | 2023-07-11 06:00 | NUR ---
SHIFT SUMMARY 73 YR F ADMITTED ON 07/06/23. DNR. NO ACUTE CHANGES THIS SHIFT. NO C/O PAIN OR DISCOMFORT THIS SHIFT. PT HAS A PUREWIK THAT IS WORKING WELL FOR HER. PT APPEARS TO HAVE RESTED COMFORTABLY FOR MOST OF THIS SHIFT. BED IN LOW POSITION AND CALL LIGHT IN REACH.
[2023-07-11 07:24] VITALS: BP 151/75
[2023-07-11] MEDS ORDERED: Carvedilol 6.25 MG Tab PO SCH (09:00)
[2023-07-11] MEDS ORDERED: AmLODIPine Besylate 5 MG Tab PO SCH (09:00)
[2023-07-11 17:24] VITALS: BP 148/78
--- NOTE | 2023-07-11 19:26 | NUR ---
SHIFT SUMMARY: NO ACUTE EVENTS, VSS. DENIED PAIN. GOT UP TO BSC WITH TWO STAFF AND GAIT BELT, NEEDS MAX ASSIST. APPETITE OK. SPEECH THERAPY FOLLOWED UP THIS MORNING.
[2023-07-11 20:20] VITALS: BP 139/74
--- NOTE | 2023-07-12 01:55 | NUR ---
SHIFT SUMMARY NO ACUTE CHANGES THIS SHIFT. PT HAS BEEN RESTLESS THROUGHOUT THE NIGHT. PUREWIK IN PLACE AND WORKING WELL. NO C/O PAIN OR DISCOMFORT AND NO OBVIOUS NEUROLOGICAL CHANGES. BED IN LOW POSITION AND CALL LIGHT IN REACH.
[2023-07-12 02:30] VITALS: BP 129/78
[2023-07-12 04:45] LABS: BASOPHILS ABSOLUTE AUTO 0.07 K/mm3 (0.00-0.23); BASOPHILS PERCENT AUTO 1 % (0-2); EOSINOPHILS ABSOLUTE AUTO 0.15 K/mm3 (0.00-0.68); EOSINOPHILS PERCENT AUTO 3 % (0-6); Hematocrit 37.1 % (33.0-51.0); Hemoglobin 12.7 g/dL (11.5-16.0); IMMATURE GRAN ABSOLUTE AUTO 0.02 K/mm3 (0.00-0.10); IMMATURE GRAN PERCENT AUTO 0 % (0-1); LYMPHOCYTES ABSOLUTE AUTO 1.87 K/mm3 (0.84-5.20); LYMPHOCYTES PERCENT AUTO 31 % (21-46); MONOCYTES ABSOLUTE AUTO 0.48 K/mm3 (0.16-1.47); MONOCYTES PERCENT AUTO 8 % (4-13); Mean Corpuscular HGB 30.2 pg (26.0-34.0); Mean Corpuscular HGB Conc 34.2 g/dL (31.5-36.5); Mean Corpuscular Volume 88 fL (80-100); Mean Platelet Volume 10.3 fL (9.1-12.4); NEUTROPHILS ABSOLUTE AUTO 3.41 K/mm3 (1.96-9.15); NEUTROPHILS PERCENT AUTO 57 % (41-73); Platelet Count 294 K/mm3 (150-400); RDW Coefficient Variation 11.9 % (11.7-14.2); RDW Standard Deviation 38.2 fL (35.1-46.3)
[2023-07-12 04:59] LABS: Bun/Creatinine Ratio 48.4 (12.0-20.0); Calcium, Blood 9.2 mg/dL (8.5-10.1); Creatinine, Blood 0.62 mg/dL (0.40-1.00); Potassium, Blood 3.5 mmol/L (3.5-5.5)
[2023-07-12 07:51] VITALS: BP 142/74
[2023-07-12] MEDS ORDERED: Carvedilol 6.25 MG Tab PO ONE (10:00)
[2023-07-12] MEDS ORDERED: Baclofen 10 MG Tab PO SCH (14:00)
--- NOTE | 2023-07-12 15:32 | NUR ---
SHIFT SUMMARY MS BOX IS ORIENTATED X 4, SHE DENIES ANY FEELINGS OF CONFUSION AFTER THE STROKE. RIGHT ARM FLACID, SHE IS MOVING IT WITH HER LEFT HAND. SHE'S ABLE TO LIFT HER RIGHT LEG OFF THE BED BUT NOT FLEX OR EXTEND THE RIGHT ANKLE. R FACIAL DROOP. UP TO SHOWER WITH 2 PERSON ASSIST TO PIVOT TRANSFER. FAMILY AT BEDSIDE. SHE DENIES PAIN. BED LOW, CALL LIGHT IN REACH.
[2023-07-12 16:00] VITALS: BP 125/68
[2023-07-12] MEDS ORDERED: Carvedilol 6.25 MG Tab PO SCH (17:00)
[2023-07-12] MEDS ORDERED: TraZODone HCl 50 MG Tab PO PRN (17:40)
[2023-07-12 20:14] VITALS: BP 128/61
[2023-07-13] VITALS (7 sets, daily range): BP systolic 82–147; BP diastolic 56–74
[2023-07-13 05:15] LABS: BASOPHILS ABSOLUTE AUTO 0.05 K/mm3 (0.00-0.23); BASOPHILS PERCENT AUTO 1 % (0-2); EOSINOPHILS ABSOLUTE AUTO 0.16 K/mm3 (0.00-0.68); EOSINOPHILS PERCENT AUTO 3 % (0-6); Hematocrit 37.2 % (33.0-51.0); Hemoglobin 12.7 g/dL (11.5-16.0); IMMATURE GRAN ABSOLUTE AUTO 0.02 K/mm3 (0.00-0.10); IMMATURE GRAN PERCENT AUTO 0 % (0-1); LYMPHOCYTES ABSOLUTE AUTO 1.87 K/mm3 (0.84-5.20); LYMPHOCYTES PERCENT AUTO 30 % (21-46); MONOCYTES ABSOLUTE AUTO 0.45 K/mm3 (0.16-1.47); MONOCYTES PERCENT AUTO 7 % (4-13); Mean Corpuscular HGB 30.4 pg (26.0-34.0); Mean Corpuscular HGB Conc 34.1 g/dL (31.5-36.5); Mean Corpuscular Volume 89 fL (80-100); Mean Platelet Volume 10.3 fL (9.1-12.4); NEUTROPHILS ABSOLUTE AUTO 3.78 K/mm3 (1.96-9.15); NEUTROPHILS PERCENT AUTO 60 % (41-73); Platelet Count 321 K/mm3 (150-400); RDW Coefficient Variation 11.9 % (11.7-14.2); RDW Standard Deviation 38.4 fL (35.1-46.3); Red Blood Cell Count 4.18 M/mm3 (3.80-5.20); White Blood Cell Count 6.33 K/mm3 (4.00-11.30)
[2023-07-13 05:48] LABS: Bun/Creatinine Ratio 49.6 (12.0-20.0); Calcium, Blood 9.1 mg/dL (8.5-10.1); Creatinine, Blood 0.69 mg/dL (0.40-1.00); Potassium, Blood 3.7 mmol/L (3.5-5.5)
--- NOTE | 2023-07-13 07:49 | NUR ---
SHIFT SUMMARY PT IS A&OX4, SPEECH IS MILDLY SLURRED. NO ACUTE CHANGES THIS SHIFT. VSS ON RA. DENIES PAIN. SLEPT WELL T/O NOC WITH TRAZODONE. TOLERATING A MINCED AND MOIST DIET WITH THINS. SHE SAID HER APPETITE IS POOR R/T THE FOOD APPEAL. SHE TAKES PILLS WHOLE, ONE AT A TIME WITH APPLESAUCE. ADEQUATE DARK YELLOW, CLOUDY URINE OUTPUT VIA WICKING SYSTEM. NO BM THIS SHIFT. REPOSITIONS SELF IN BED. BED IN LOWEST POSITION, CALL LIGHT WITHIN REACH.
[2023-07-13 10:28] LABS: Influenza A, PCR NEGATIVE (NEGATIVE); Influenza B, PCR NEGATIVE (NEGATIVE); Resp Syncytial Virus, PCR NEGATIVE (NEGATIVE); SARS-Cov-2 (COVID-19) PCR, MMC NEGATIVE (NEGATIVE)
[2023-07-13] MEDS ORDERED: LevETIRAcetam 500 MG Tab PO ONE (10:30)
[2023-07-13] MEDS ORDERED: Sodium Chloride 0.45% 1,000 ML IV SCH (10:55)
--- NOTE | 2023-07-13 11:26 | NUR ---
FURNACE RELINER CALLED AT 1030. PT FOUND UP IN CHAIR WITH CONT PULSE OX ALARMING WITH A HR AT 38-40. PT UNRESPONSIVE WITH HEAD DOWN AND DROOLING. FURNACE RELINER CALLED. PATIENT PLACED BACK INTO BED. HR INCREASED TO 67 AFTER PT WAS LYING IN BED. HOB ELEVATED TO ASSIST WITH BREATHING. PT DIAPHORETIC- BLOOD SUGAR 158. EKG COMPLETED. BP ON THE SOFT SIDE. DR. KEENAN NOTIFIED OF EVENT. KEPPRA CHANGED TO 1000MG BID AND EXTRA DOSE OF 500MG TO BE GIVEN. TELE ORDERED. BP RECHECKED AT 1058 AND REMAINS SOFT AT 82/59. DR. KEENAN NOTIFIED. 1/2 NS X 1 LITER ORDERED AND PO FLUID TO BE ENCOURAGED. DAUGHTER AT BEDSIDE, AND UPDATEDON EVENTS TODAY. DISCHARGE HELD TODAY.
--- NOTE | 2023-07-13 16:05 | NUR ---
PALLATIVE CARE- RR WAS CALLED. GARRETT WAS UP TO THE CHAIR AND HER HR DROPPED. THIS IS THE THIRD EPISODE OF THIS THAT I AM AWARE OF. I CAME TO THE BEDSIDE TO PROVIDE SUPPORT NEEDED. DAUGHTER WAS ON HER WAS TO VISIT HER MOM. WHEN HER DAUGHTER KO ARRIVED I MET WITH HER AND THE PROVIDER TO DISCUSS THE EVENT THAT GARRETT HAD. DR. KEENAN ORDERED A FLUID BOLIS, AND CHANGED MEDICATIONS TO HOPEFULLY PREVENT ANOTHER EPISODE. HE INCREASED HER KEPPRA, AND DC LOSARTIAN AND MUSCLE RELAXER. PROVIDED WATER FOR KO AND PROVIDED THERAPUTIC CONVERSATION. DISCUSSED IMPORTANCE OF HER SELF CARE AT THIS TIME.
--- NOTE | 2023-07-13 17:08 | NUR ---
SHIFT SUMMARY SEE PREVIOUS NOTE ABOUT SENIOR IT PROJECT MANAGER AND ABCENT SEIZURE. SINCE THEN, PT HAS RECIEVED 1L IV FLUIDS TO SUPPORT BP. BP NOW IMPROVED TO 127/63. TELE IN PLACE, RUNNING SINUS AT 72 PER HARDWARE SUPPLIES SALES REPRESENTATIVE. MEDICATION CHANGES MADE BY DR. JACQUES TO HELP SUPPORT BP. KEPPRA DOSE INCREASED. ENCOURAGING PO INTAKE. VERY CONCENTRATED URINE OUTPUT. NO OTHER EPISODES OF SEIZURE ACTIVITY. KO LAWSON AT BEDSIDE MOST THE DAY. NO OTHER ACUTE CHANGES IN ASSESSMENT AT THIS TIME. VS REVIEWED. CALL LIGHT IN REACH. DENIES OTHER NEEDS AT THIS TIME.
[2023-07-13] MEDS ORDERED: LevETIRAcetam 500 MG Tab PO SCH (21:00)
[2023-07-14 04:41] LABS: BASOPHILS ABSOLUTE AUTO 0.05 K/mm3 (0.00-0.23); BASOPHILS PERCENT AUTO 1 % (0-2); EOSINOPHILS ABSOLUTE AUTO 0.18 K/mm3 (0.00-0.68); EOSINOPHILS PERCENT AUTO 3 % (0-6); Hematocrit 35.2 % (33.0-51.0); Hemoglobin 12.2 g/dL (11.5-16.0); IMMATURE GRAN ABSOLUTE AUTO 0.02 K/mm3 (0.00-0.10); IMMATURE GRAN PERCENT AUTO 0 % (0-1); LYMPHOCYTES ABSOLUTE AUTO 1.96 K/mm3 (0.84-5.20); LYMPHOCYTES PERCENT AUTO 30 % (21-46); MONOCYTES ABSOLUTE AUTO 0.46 K/mm3 (0.16-1.47); MONOCYTES PERCENT AUTO 7 % (4-13); Mean Corpuscular HGB 30.7 pg (26.0-34.0); Mean Corpuscular HGB Conc 34.7 g/dL (31.5-36.5); Mean Corpuscular Volume 88 fL (80-100); Mean Platelet Volume 10.3 fL (9.1-12.4); NEUTROPHILS ABSOLUTE AUTO 3.97 K/mm3 (1.96-9.15); NEUTROPHILS PERCENT AUTO 60 % (41-73); Platelet Count 284 K/mm3 (150-400); RDW Coefficient Variation 11.8 % (11.7-14.2); RDW Standard Deviation 37.5 fL (35.1-46.3); Red Blood Cell Count 3.98 M/mm3 (3.80-5.20); White Blood Cell Count 6.64 K/mm3 (4.00-11.30)
--- NOTE | 2023-07-14 04:56 | NUR ---
SHIFT SUMMARY PT IS A&OX4, VSS ON RA. NSR 70-80'S PER TELEMETRY. NO ACUTE EVENTS OR CHANGES THIS SHIFT. PT SLEPT WELL. DENIES PAIN. ADEQUATE URINE OUTPUT VIA WICKING SYSTEM. URINE IS DARK YELLOW BUT CLEAR. ENCOURAGED FLUIDS T/O NOC. NO BM THIS SHIFT. PT REPOSITIONS SELF IN BED, BUT CALLS WITH MORE ASSISTANCE WHEN NEEDED. BED IN LOWEST POSITION, CALL LIGHT WITHIN REACH. BED ALARM SET FOR PT'S SAFETY.
[2023-07-14 04:57] VITALS: BP 128/67
[2023-07-14 05:17] LABS: Magnesium, Blood 2.3 mg/dL (1.6-2.4)
[2023-07-14 05:18] LABS: Albumin, Blood 3.2 g/dL (3.4-5.0); Anion Gap 4 mmol/L (6-16); Blood Urea Nitrogen 24 mg/dL (8-24); Bun/Creatinine Ratio 34.1 (12.0-20.0); CO2, Blood 26 mmol/L (21-32); Calcium, Blood 9.5 mg/dL (8.5-10.1); Chloride, Blood 107 mmol/L (98-108); Glomerular Filtration Rate 91 (60-); Glucose, Blood 109 mg/dL (70-99); Phosphorus, Blood 3.3 mg/dL (2.5-4.9); Potassium, Blood 3.6 mmol/L (3.5-5.5); Sodium, Blood 137 mmol/L (136-145)
[2023-07-14 07:31] VITALS: BP 141/75
--- NOTE | 2023-07-14 15:12 | NUR ---
Spiritual care visit. Pt. is somnolent but responds when I enter the room. Daughter is at bedside. Pt. displays evidence of being exhuasted after having several family visitors, so this welfare eligibility worker chose to keep the visit short. Pt. did verbalize and expectation of being discharged to a rehab center tommorrow. Pt. and saughter both verbalized gratitude for the spiritual care visit.
[2023-07-14 15:20] VITALS: BP 133/77
[2023-07-14] MEDS ORDERED: Carvedilol 6.25 MG Tab PO SCH (17:00)
--- NOTE | 2023-07-14 18:08 | NUR ---
SHIFT SUMMARY NO SEUIZURE EPISODES TODAY. PT ALERT & ORIENTED T/O SHIFT. BP STABLE. PT DOING WELL WITH PO INTAKE. POSSIBLE PLAN TO DC TO SNF TOMORROW. BED BATH RECIEVED TODAY. NO CHANGES IN TELE THIS SHIFT. PT WORKED WITH ST TODAY. NO CHANGES IN DIET MADE AT THIS POINT. OT ALSO WORKED WITH PATIENT TODAY WITH BED EXERCISES. PT PLEASANT & COOPERATE. DAUGHTER AT BEDSIDE T/O SHIFT. NO OTHER ACUTE CHANGES IN ASSESSMENT AT THIS TIME. CALL LIGHT IN REACH. DENIES OTHER NEEDS AT THIS TIME.
[2023-07-14 19:46] VITALS: BP 138/69
[2023-07-15 02:27] VITALS: BP 132/68
[2023-07-15 07:38] VITALS: BP 149/70
[2023-07-15] MEDS ORDERED: Bisacodyl 5 MG TabEC PO PRN (07:55)
--- NOTE | 2023-07-15 08:26 | NUR ---
SHIFT SUMMARY PT IS A&OX4, VSS ON RA. PER TELEMETRY PT IS IN NSR @ 70. NO ACUTE EVENTS OR CHANGES THIS SHIFT. PT HAVING WEIRD DREAMS AND WAKING UP EVERY HOUR. DENIES PAIN. CLEAR YELLOW URINE VIA WICKING SYSTEM. NO BM THIS SHIFT. OFFERED TO CALL MD AND GET AN ORDER FOR BOWEL MEDS, BUT PT WANTED TO WAIT. PT IS LOOKING FORWARD TO GOING TO REHAB TODAY. BED IN LOWEST POSITION, CALL LIGHT WITHIN REACH.
[2023-07-15] MEDS ORDERED: Sennosides 8.6 MG Tab PO SCH (09:00)
[2023-07-15 10:51] LABS: SARS-Cov-2 (COVID-19) PCR, MMC NEGATIVE (NEGATIVE)
[2023-07-15] MEDS ORDERED: GABA300 PO (12:24)
[2023-07-15] MEDS ORDERED: AMLO10 PO (12:24)
[2023-07-15] MEDS ORDERED: CARV6.25 PO (12:24)
[2023-07-15] MEDS ORDERED: TRAZ50 PO (12:25)
[2023-07-15] MEDS ORDERED: OXYC5 PO (12:25)
[2023-07-15] MEDS ORDERED: LEVE500 PO (12:25)
--- NOTE | 2023-07-15 16:01 | NUR ---
CALLED REPORT TO RAJESH AT [facility], PT LEFT VIA WHEELCHAIR TRANSPORT AT 1405 WITH FAMILY ACCOMPANYING OUT TO CAR AND TO MEET HER AT FACILITY. BELONGINGS SENT WITH PT. WRITTEN SCRIPT SENT WITH PT PAPERWORK
== END 2023-07-15 14:09 | DRG 65 ==
LOC: ER 09:58 → MEDS 09:59 → PCU 07-08 14:50 → MEDS 07-10 17:00
PROVIDERS: Emergency Medicine; Family Medicine; Student in an Organized Health Care Education/Training Program; ADMIT Internal Medicine
DX: I63.9 Cerebral infarction, unspecified (principal); G81.91 Hemiplegia, unspecified affecting right dominant side; R56.9 Unspecified convulsions; I10 Essential (primary) hypertension; I25.10 Atherosclerotic heart disease of native coronary artery without angina pectoris; E78.5 Hyperlipidemia, unspecified; Z66 Do not resuscitate; D18.00 Hemangioma unspecified site; R55 Syncope and collapse; K21.9 Gastro-esophageal reflux disease without esophagitis; I73.9 Peripheral vascular disease, unspecified; K22.70 Barrett's esophagus without dysplasia; R47.81 Slurred speech; R00.1 Bradycardia, unspecified; Z90.49 Acquired absence of other specified parts of digestive tract; Z90.89 Acquired absence of other organs; Z88.8 Allergy status to other drugs, medicaments and biological substances; Z79.82 Long term (current) use of aspirin; Z79.899 Other long term (current) drug therapy; Z11.52 Encounter for screening for COVID-19; Z90.710 Acquired absence of both cervix and uterus
CPT/HCPCS: 0241U; 36415; 70450; 70496; 70551; 74230; 80048; 80053; 80069; 82803; 82947; 83735; 84100; 85025; 92526; 92610; 92611; 93005; 93010; 94762; 95819; 96372; 96374; 96375; 97110; 97112; 97161; 97166; 97530; 99285-25; A9270; G0378; J0360; J1650; J1953; Q9967; U0002